=== PATIENT | female | born 1950 | race Hispanic/Latino ===

== ENCOUNTER 2019-06-11 10:27 | Outpatient (CLI) | payer MEDICARE, OTHER ==
--- NOTE | 2019-06-11 14:55 | Mammography Report ---
BONE DEXA CLINICAL: Postmenopausal. COMPARISON: 07/05/2016 and 12/17/2009 TECHNIQUE: 2 site bone DEXA performed on an Hologic scanner. FINDINGS: The average BMD of the lumbar spine L1-L4 is 0.765g/cm squared with a T score of -2.6 and a Z score o f -0.4. This compares to 0.755g/cm squared on the last exam and represents a +1.4 % change from the l ast study and a +0.9% change from baseline. The average BMD of the left hip is 0.754 g/cm squared with a T score of -1.5and a Z score of 0. This compares to 0.757 g/cm squared on the last exam and represents a -0.3 % change from the last study an d a +3.4% change from baseline. The left femoral neck BMD is 0.556 g/cm squared with a T score of -2.6 and a Z score of -0.8. IMPRESSION: 1. WHO classification: Osteoporosis with high fracture risk based on spine measurements. 2. WHO classification osteoporosis with high fracture risk based on left femoral neck measurements. 3. A modest improvement in spine BMD and a modest decline in left hip BMD compared to the last exam. RECOMMENDATION: Clinical correlation and routine screening. Definitions: BMD equal bone mineral density T score = BMD related to peak bone mass of young adult (Banks expressed an standard deviation) Z score = age-matched BMD expressed in SD World health organization (WHO) diagnostic criteria Normal T score greater than equal to 1 standard deviation Osteopenia T score between -1 and -2.4 standard deviation Osteoporosis T score -2.5 standard deviation or below. Note: BMD is not the only risk factor for fracture; also consider factors such as the patient's age, risk of falling, previous osteoporotic fracture, family history of osteoporotic fractures, current sm oker and low body weight. Z scores are not calculated if greater than 80 years of age. Signer Name: Petey Tirado MD Signed: 06/11/2019 2:50 PM Workstation Name: [id number]
== END 2019-06-11 10:28 | disposition home or self-care (01) ==
LOC: SPVWC 10:27
PROVIDERS: ATTEND Internal Medicine
DX: M81.0 Age-related osteoporosis without current pathological fracture (principal); Z78.0 Asymptomatic menopausal state
CPT/HCPCS: 77080